=== PATIENT | female | born 1960 | race Caucasian/White ===

== ENCOUNTER 2019-06-24 14:59 | Emergency (ER) | payer OTHER, MEDICARE ==
[~2019-06-24] VITALS: Ht 152.4 cm; Wt 57.8 kg
[2019-06-24 15:45] VITALS: BP 143/75
--- NOTE | 2019-06-24 16:24 | Diagnostic Imaging Report ---
EXAMINATION: CXR 1 [facility] INDICATION: Trauma COMPARISON: None FINDINGS: LINES/TUBES:None LUNGS:The lungs are well-inflated. No focal consolidation or pulmonary edema. PLEURA:No pleural effusion or pneumothorax. MEDIASTINUM:The cardiomediastinal silhouette appears normal in size and shape. BONES/SOFT TISSUES:No acute osseous injury. ABDOMEN:No free air under the diaphragm. IMPRESSION: No radiographic evidence of acute traumatic injury to the thorax. Signed by: Osmar Ugarte MD on 06/24/2019 4:21 PM
--- NOTE | 2019-06-24 16:26 | Diagnostic Imaging Report ---
EXAMINATION: WRIST 3VW RT - [facility]OPD INDICATION: Trauma COMPARISON: None FINDINGS: No acute fracture or dislocation. Alignment is anatomic. No substantial degenerative change. The soft tissues appear unremarkable. IMPRESSION: No acute osseous injury. Signed by: Osmar Ugarte MD on 06/24/2019 4:23 PM
--- NOTE | 2019-06-24 16:35 | Diagnostic Imaging Report ---
Head CT without intravenous contrast. TECHNIQUE: The head was scanned utilizing a multidetector helical scanner without administration of IV contrast. Coronal and sagittal reformations were obtained. COMPARISON: None. FINDINGS: The brain parenchyma demonstrates no significant abnormality. There is no evidence of intracranial hemorrhage, infarction or intracranial mass lesion. Ventricles, sulci, and cisterns are normal in size and configuration. The bones and extracranial soft tissues are unremarkable. The paranasal sinuses and mastoid air cells are clear. IMPRESSION: No acute intracranial findings. Signed by: Osmar Ugarte MD on 06/24/2019 4:31 PM
--- NOTE | 2019-06-24 16:39 | Diagnostic Imaging Report ---
TECHNIQUE: Cervical spine CT WITHOUT intravenous contrast. Standard departmental protocols were used. Sagittal and coronal reformatted images were obtained. RADIATION DOSE: Total DLP: 178.0 mGy*cm COMPARISON: None. FINDINGS: There is no acute fracture. Mild straightening of the normal cervical lordosis. There is minimal anterolisthesis at C3-4 and C4-5. Mild multilevel degenerative changes with disc space narrowing, small osteophyte formation and facet hypertrophy. The visualized soft tissues of the neck are unremarkable. Minimal biapical pleural parenchymal thickening and scarring at the lung apices. No focal lung lesion or consolidation. IMPRESSION: No acute fracture or dislocation. Signed by: Osmar Ugarte MD on 06/24/2019 4:36 PM
== END 2019-06-24 17:02 | disposition home or self-care (01) ==
LOC: FSED 14:59
DX: S00.83XA Contusion of other part of head, initial encounter (principal); S13.4XXA Sprain of ligaments of cervical spine, initial encounter; M25.532 Pain in left wrist; M25.531 Pain in right wrist; M54.6 Pain in thoracic spine; M25.519 Pain in unspecified shoulder; V43.52XA Car driver injured in collision with other type car in traffic accident, initial encounter; Y92.488 Other paved roadways as the place of occurrence of the external cause; F17.220 Nicotine dependence, chewing tobacco, uncomplicated; F12.90 Cannabis use, unspecified, uncomplicated
CPT/HCPCS: 70450; 71045; 72125; 99283

== ENCOUNTER 2019-09-12 15:39 | Emergency (ER) | payer MEDICARE, OTHER ==
[~2019-09-12] VITALS: Ht 152.4 cm; Wt 59.0 kg
--- OUTSIDE RECORDS SUMMARY | 2019-09-12 15:42 | XMS REPORT ---
[facility] Address Unknown Phone Unavailable Care Team Providers Care Tests Superintendent Name Role Phone PRAVEENA BLAKELY Unavailable Unavailable Problems This patient has no known problems. Allergies, Adverse Reactions, Alerts This patient has no known allergies or adverse reactions. Medications This patient has no known medications. Results Test Description Test Time Test Comments Text Results Atomic Results Result Comments CT C-SPINE W/O - HOPD 2019-06-24 16:31:00 [place] [address] Patient Name: CHON FLYNN MR #: [id number] : 1960 Age/Sex: 59/F Req #: [id number] [facility] Physician: Ordered by: PRAVEENA BLAKELY MD Report #: [id number] Location: [facility] Room/Bed: Procedure: [id number] HOPD/CT C-SPINE W/O - [facility] Exam Date: 06/24/19 Exam Time: 1555 REPORT STATUS: Signed ADDENDUM #1 INDICATION: Tr auma Signed by: Stephanie James MD on 07/18/2019 10:58 AM ORIGINAL REPORT TECHNIQUE: Cervical spine CT WITHOUT intravenous contrast. Standard departmental protocols were used. Sagittal and coronal reformatted images were obtained. RADIATION DOSE: Total DLP: 178.0 mGy*cm COMPARISON: None. FINDINGS: There is no acute fracture. Mild straightening of the normal cervical lordosis. There is minimal anterolisthesis at C3-4 and C4-5. Mild multilevel degenerative changes with disc space narrowing, small osteophyte formation and facet hypertrophy. The visualized soft tissues of the neck are unremarkable. Minimal biapical pleural parenchymal thickening and scarring at the lung apices. No focal lung lesion or consolidation. IMPRESSION: No acute fracture or dislocation. Signed by: Stephanie James MD on 06/24/2019 4:36 PM Dictated By: STEPHANIE JAMES MD 1058 Transcr ibed By: YASMANI on 06/24/19 1636 COPY TO: PRAVEENA BLAKELY MD CT BRAIN [facility] 2019-06-24 16:27:00 [place] [address] Patient Name: CHON FLYNN MR #: [id number] : 1960 Age/Sex: 59/F Req #: [id number] Adm Physician: Ordered by: PRAVEENA BLAKELY MD Report #: [id number] Location: [facility] Room/Bed: Procedure: [id number] HOPD/CT BRAIN [facility] Exam Date: 06/24/19 Exam Time: 1550 REPORT STATUS: Signed Head CT without intravenous contrast. TECHNIQUE: The head was scanned utilizing a multidetector helical scanner without administration of IV contrast. Coronal and sagittal reformations were obtained. COMPARISON: None. FINDINGS: The brain parenchyma demonstrates no significant abnormality. There is no evidence of intracranial hemorrhage, infarction or intracranial mass lesion. Ventricles, sulci, and cisterns are normal in size and configuration. The bones and extracranial soft tissues are unremarkable. The paranasal sinuses and mastoid air cells are clear. IMPRESSION: No acute intracranial findings. Signed by: Stephanie James MD on 06/24/2019 4:31 PM Dictated By: STEPHANIE JAMES MD 1631 Transcribed By: YASMANI on 06/24/19 163 COPY TO: PRAVEENA BLAKELY MD WRIST 3VW RT - [facility] 2019-06-24 16:22:00 [place] [address] Patient Name: CHON FLYNN MR #: [id number] : 1960 Age/Sex: 59/F Req #: [id number] Adm Physician: Ordered by: PRAVEENA BLAKELY MD Report #: [id number] Location: [facility] Room/Bed: Procedure: [id number] HOPD/WRIST 3VW RT - [facility] Exam Date: 06/24/19 Exam Time: 1603 REPORT STATUS: Signed EXAMINATION: WRIST 3VW RT - [facility] INDICATION: Trauma COMPARISON: None FINDINGS: No acute fracture or dislocation. Alignment is anatomic. No substantial degenerative change. The soft tissues appear unremarkable. IMPRESSION: No acute osseous injury. Signed by: Stephanie James MD on 06/24/2019 4:23 PM Dictated By: STEPHANIE JAMES MD 1623 Transcribed By: YASMANI on 06/24/19 162 COPY TO: PRAVEENA BLAKELY MD CXR 1 VEW - [facility] 2019-06-24 16:20:00 [facility] [address] [place] [address] Patient Name: CHON FLYNN MR #: [id number] : 1960 Age/Sex: 59/F Req #: [id number] Adm Physician: Ordered by: PRAVEENA BLAKELY MD Report #: [id number] Location: [facility] Room/Bed: Procedure: [id number] HOPD/CXR 1 VEW - [facility] Exam Date: 06/24/19 Exam Time: 1600 REPORT STATUS: Signed EXAMINATION: CXR 1 VEW - [facility]OPD INDICATION: Trauma COMPARISON: None FINDINGS: LINES/TUBES:None LUNGS:The lungs are well-inflated. No focal consolidation or pulmonary edema. PLEURA:No pleural effusion or pneumothorax. MEDIASTINUM:The cardiomediastinal silhouette appears normal in size and shape. BONES/SOFT TISSUES:No acute osseous injury. ABDOMEN:No free air under the diaphragm. IMPRESSION: No radiographic evidence of acute traumatic injury to the thorax. Signed by: Stephanie James MD on 06/24/2019 4:21 PM Dictated By: STEPHANIE JAMES MD 20 Transcribed By: YASMANI on 06/24/191620 COPY TO: PRAVEENA BLAKELY MD
[2019-09-12] MEDS ORDERED: TIZANIDINE HCL4 MG PO (17:12)
[2019-09-12] MEDS ORDERED: ULTRAM50 MG PO (17:14)
[2019-09-12] MEDS ORDERED: PREDNISONE20 MG PO (17:14)
== END 2019-09-12 17:43 | disposition home or self-care (01) ==
LOC: FSED 15:39
DX: S16.1XXA Strain of muscle, fascia and tendon at neck level, initial encounter (principal); M54.12 Radiculopathy, cervical region
CPT/HCPCS: 99282

== ENCOUNTER 2022-03-07 15:04 | Emergency (ER) | payer MEDICARE ==
[~2022-03-07] VITALS: Ht 152.4 cm; Wt 59.0 kg
[~2022-03-07 15:04] MED LIST: PREDNISONE20 MG PO; TIZANIDINE HCL4 MG PO; ULTRAM50 MG PO
[2022-03-07 16:00] LABS: BASOPHILS % 0.5 % (0.0-1.0); EOSINOPHILS % 0.2 % (0.0-6.0); HEMATOCRIT 38.1 % (34.2-44.1); HEMOGLOBIN 12.4 g/dL (12.0-16.0); LYMPHOCYTES # (AUTO) 1.3 (1.0-3.2); LYMPHOCYTES % 20.8 % (18.0-39.1); MEAN CORPUSCULAR HEMOGLOBIN 30.9 pg (28-32); MEAN CORPUSCULAR HGB CONC 32.5 g/dL (31-35); MONOCYTES # (AUTO) 1.4 (0.2-0.8); MONOCYTES % 21.9 % (4.4-11.3); NEUTROPHILS # (AUTO) 3.6 (2.1-6.9); NEUTROPHILS % 56.3 % (38.7-80.0); PLATELET COUNT 297 x10e3/uL (140-360); RED BLOOD COUNT 4.01 x10e6/uL (3.6-5.1); RED CELL DISTRIBUTION WIDTH 13.3 % (11.7-14.4)
[2022-03-07 16:28] LABS: ALANINE AMINOTRANSFERASE 23 IU/L (0-55); ALBUMIN 3.7 g/dL (3.5-5.0); ALBUMIN/GLOBULIN RATIO 0.9 (0.8-2.0); ALKALINE PHOSPHATASE 93 IU/L (40-150); ANION GAP 13.7 mmol/L (8-16); BLOOD UREA NITROGEN 13 mg/dL (7-26); BUN/CREATININE RATIO 16 (6-25); CARBON DIOXIDE 24 mmol/L (22-29); CHLORIDE 106 mmol/L (98-107); CREATINE KINASE 58 IU/L (29-168); CREATININE, SERUM 0.82 mg/dL (0.57-1.11); GLUCOSE 99 mg/dL (74-118); POTASSIUM 3.7 mmol/L (3.5-5.1); SODIUM 140 mmol/L (136-145)
[2022-03-07 17:06] VITALS: BP 128/81
== END 2022-03-07 17:08 | disposition home or self-care (01) ==
LOC: ER 15:11
DX: R50.9 Fever, unspecified (principal); U07.1 COVID-19; R11.2 Nausea with vomiting, unspecified; K21.9 Gastro-esophageal reflux disease without esophagitis; F31.9 Bipolar disorder, unspecified; M54.9 Dorsalgia, unspecified; G89.29 Other chronic pain
CPT/HCPCS: 0223U; 36415; 71046; 80053; 82550; 82553; 83880; 84484; 85025; 93005; 99284

== ENCOUNTER 2023-12-01 13:15 | Emergency (ER) | payer MEDICARE ==
[~2023-12-01] VITALS: Ht 152.4 cm; Wt 54.4 kg
[2023-12-01] MEDS: SODIUM CHLORIDE 0.9% 1000ML 1,000 ML IV STA (14:25)
[2023-12-01 14:49] LABS: BASOPHILS # (AUTO) 0.1 (0.0-0.1); BASOPHILS % 0.6 % (0.0-1.0); EOSINOPHILS # (AUTO) 0.3 (0.0-0.4); EOSINOPHILS % 1.7 % (0.0-6.0); HEMATOCRIT 39.7 % (34.2-44.1); HEMOGLOBIN 13.4 g/dL (12.0-16.0); LYMPHOCYTES # (AUTO) 4.5 (1.0-3.2); LYMPHOCYTES % 30.7 % (18.0-39.1); MEAN CORPUSCULAR HEMOGLOBIN 32.1 pg (28-32); MEAN CORPUSCULAR HGB CONC 33.8 g/dL (31-35); MEAN CORPUSCULAR VOLUME 95.2 fL (81-99); MONOCYTES # (AUTO) 0.8 (0.2-0.8); MONOCYTES % 5.4 % (4.4-11.3); NEUTROPHILS # (AUTO) 8.9 (2.1-6.9); PLATELET COUNT 376 x10e3/uL (140-360); RED BLOOD COUNT 4.17 x10e6/uL (3.6-5.1); WHITE BLOOD COUNT 14.56 x10e3/uL (4.8-10.8)
[2023-12-01 15:11] LABS: ALANINE AMINOTRANSFERASE 26 IU/L (0-55); ALKALINE PHOSPHATASE 105 IU/L (40-150); ANION GAP 16.8 mmol/L (8-16); BILIRUBIN,TOTAL 0.2 mg/dL (0.2-1.2); BLOOD UREA NITROGEN 18 mg/dL (7-26); BUN/CREATININE RATIO 21 (6-25); CALCIUM 9.8 mg/dL (8.4-10.2); CARBON DIOXIDE 24 mmol/L (22-29); CHLORIDE 105 mmol/L (98-107); CREATINE KINASE 31 IU/L (29-168); CREATININE, SERUM 0.84 mg/dL (0.57-1.11); EST GLOMERULAR FILTRATION RATE 79 ML/MIN (>=60); GLUCOSE 125 mg/dL (74-118); POTASSIUM 4.8 mmol/L (3.5-5.1); SODIUM 141 mmol/L (136-145); TOTAL PROTEIN 8.1 g/dL (6.5-8.1)
[2023-12-01 15:19] LABS: BILIRUBIN,URINE NEGATIVE (NEGATIVE); CLARITY,URINE SL CLOUDY (CLEAR); COLOR,URINE YELLOW (YELLOW); GLUCOSE, URINE NEGATIVE (NEGATIVE); KETONES,URINE NEGATIVE (NEGATIVE); LEUKOCYTE ESTERASE ,URINE TRACE (NEGATIVE); NITRITE,URINE NEGATIVE (NEGATIVE); PH,URINE 6.5 (5 - 7); PROTEIN,URINE DIPSTICK NEGATIVE (NEGATIVE); TROPONIN I < 0.001 ng/mL (0-0.300); URINE UROBILINOGEN 0.2 mg/dL (0.2 - 1)
[2023-12-01 15:35] LABS: BACTERIA,URINE FEW /HPF
[2023-12-01] MEDS ORDERED: PAXLOVID 300-11 EAC1 PO (16:53)
[2023-12-01] MEDS ORDERED: KETOROLAC TROME10 MG PO (16:54)
[2023-12-01 16:55] VITALS: O2SAT 100
== END 2023-12-01 16:55 | disposition home or self-care (01) ==
LOC: ER 14:23
DX: R07.89 Other chest pain (principal); U07.1 COVID-19; M54.32 Sciatica, left side; K21.9 Gastro-esophageal reflux disease without esophagitis; M19.09 Primary osteoarthritis, other specified site; M54.9 Dorsalgia, unspecified; G89.29 Other chronic pain; F31.9 Bipolar disorder, unspecified
CPT/HCPCS: 36415; 71250; 74176; 80053; 81001; 82550; 83690; 84484; 85025; 99284; J7030; U0002